=== PATIENT | female | born 1935 | race American Indian/Alaskan Native ===

== ENCOUNTER 2017-08-29 17:13 | Emergency (ER) | payer MEDICARE ==
[~2017-08-29] VITALS: Ht 157.5 cm; Wt 54.4 kg
[~2017-08-29 17:13] MED LIST: AMLO5 PO; ASPI325 PO; ASPI81CH PO; ASPI81EC PO; ATOR40TA PO; CARV6.25 PO; CLOP75 PO; DOCU100 PO; ERGO50000 PO; FISH1000 PO; GABA300 PO; GABA800 PO; LISI20 PO; LISI5 PO; OXYACE5T PO; PRAV20; PRAV20 PO; ROSU10TA PO; UBID10 PO
[2017-08-29] MEDS ORDERED: AMLO5 (17:47)
[2017-08-29 18:22] LABS: Source, Urine Clean Catch
[2017-08-29 18:27] LABS: Appearance, Urine Cloudy (Clear); Blood, Urine 3+ (Neg); Color, Urine Yellow (P-Yellow); Glucose Qualitative, Urine Neg (Neg); Ketones, Urine 1+ (Neg); Leukocyte Esterase, Urine 3+ (Neg); Nitrite, Urine Neg (Neg); Protein, Urine 2+ (Neg); Urobilinogen, Urine 2+ (Normal)
[2017-08-29 18:29] LABS: BASOPHILS ABSOLUTE AUTO 0.03 K/mm3 (0.00-0.23); BASOPHILS PERCENT AUTO 0 % (0-2); EOSINOPHILS ABSOLUTE AUTO 0.31 K/mm3 (0.00-0.68); EOSINOPHILS PERCENT AUTO 4 % (0-6); Hematocrit 38.8 % (33.0-51.0); IMMATURE GRAN ABSOLUTE AUTO 0.02 K/mm3 (0.00-0.10); IMMATURE GRAN PERCENT AUTO 0 % (0-1); LYMPHOCYTES ABSOLUTE AUTO 2.45 K/mm3 (0.84-5.20); LYMPHOCYTES PERCENT AUTO 28 % (21-46); MONOCYTES ABSOLUTE AUTO 1.26 K/mm3 (0.16-1.47); MONOCYTES PERCENT AUTO 14 % (4-13); Mean Corpuscular HGB 30.7 pg (26.0-34.0); Mean Corpuscular HGB Conc 33.5 g/dL (31.5-36.5); Mean Corpuscular Volume 92 fL (80-100); Mean Platelet Volume 9.9 fL (9.1-12.4); NEUTROPHILS ABSOLUTE AUTO 4.71 K/mm3 (1.96-9.15); NEUTROPHILS PERCENT AUTO 54 % (41-73); Platelet Count 143 K/mm3 (150-400); RDW Coefficient Variation 12.8 % (11.7-14.2); RDW Standard Deviation 42.4 fL (35.1-46.3); Red Blood Cell Count 4.24 M/mm3 (3.80-5.20); White Blood Cell Count 8.78 K/mm3 (4.00-11.30)
[2017-08-29 18:36] LABS: Albumin, Blood 3.6 g/dL (3.4-5.0); Albumin/Globulin Ratio 0.9 (0.8-1.8); Bilirubin, Total 0.7 mg/dL (0.1-1.0); Bun/Creatinine Ratio 14.5 (12.0-20.0); Calcium, Blood 8.6 mg/dL (8.5-10.1); Creatinine, Blood 1.79 mg/dL (0.40-1.00); Globulin, Blood 4.2 g/dL (2.2-4.0); Total Protein, Blood 7.8 g/dL (6.4-8.2)
[2017-08-29 19:01] LABS: Bilirubin, Urine 1+ (Neg)
[2017-08-29 19:02] LABS: Bacteria Many /hpf; Squamous Epithelial Cells Few /hpf (Few); White Blood Cells, Urine 50-100 /hpf (0-5)
[2017-08-29 19:23] LABS: Influenza A Negative (NEGATIVE); Influenza B Negative (NEGATIVE)
[2017-08-29] MEDS ORDERED: CEPH500 PO (20:07)
== END 2017-08-29 20:20 | disposition left against medical advice (07) ==
LOC: ER 17:13
PROVIDERS: Emergency Medicine; Physician Assistant
DX: N39.0 Urinary tract infection, site not specified (principal); N17.9 Acute kidney failure, unspecified; I10 Essential (primary) hypertension; E78.00 Pure hypercholesterolemia, unspecified; Z79.899 Other long term (current) drug therapy; Z79.82 Long term (current) use of aspirin; Z87.891 Personal history of nicotine dependence
CPT/HCPCS: 36415; 71046; 80053; 81001; 83605; 85025; 87040; 87077; 87086; 87186; 87804; 93005; 93010; 96361; 96374; 99283; J0696; J7030

== ENCOUNTER → 2017-09-17 | Outpatient (CLI) | payer MEDICARE ==
[~2017-09-17] MED LIST changes: +AMLO5; +CEPH500 PO
== END ==
LOC: LAB EV 18:24 → LAB SHORT 18:24
DX: N39.0 Urinary tract infection, site not specified (principal)
CPT/HCPCS: 87086

== ENCOUNTER → 2020-08-19 | Outpatient (CLI) | payer MEDICARE ==
[~2020-08-19] MED LIST changes: +CODACE30 PO; +LIDO700A20 TOP; +Norco 5-325 Ta1 EACH PO; +PRAM.125 PO; +PRAVASTATIN SOD40 MG PO; +SENN187 PO
== END | disposition home or self-care (01) ==
LOC: LAB SHORT 17:46 → LAB 17:46
DX: N39.0 Urinary tract infection, site not specified (principal)
CPT/HCPCS: 87077; 87086; 87186

== ENCOUNTER 2020-09-18 19:37 | Observation (INO) | payer MEDICARE ==
[~2020-09-18] VITALS: Ht 160 cm; Wt 51.3 kg
[~2020-09-18 19:37] MED LIST changes: -CODACE30 PO; -LIDO700A20 TOP; -Norco 5-325 Ta1 EACH PO; -PRAM.125 PO; -PRAVASTATIN SOD40 MG PO; -SENN187 PO
[2020-09-18 20:11] LABS: BASOPHILS ABSOLUTE AUTO 0.03 K/mm3 (0.00-0.23); BASOPHILS PERCENT AUTO 0 % (0-2); EOSINOPHILS ABSOLUTE AUTO 0.26 K/mm3 (0.00-0.68); EOSINOPHILS PERCENT AUTO 4 % (0-6); Hematocrit 28.7 % (33.0-51.0); Hemoglobin 9.2 g/dL (11.5-16.0); IMMATURE GRAN ABSOLUTE AUTO 0.02 K/mm3 (0.00-0.10); IMMATURE GRAN PERCENT AUTO 0 % (0-1); LYMPHOCYTES ABSOLUTE AUTO 1.34 K/mm3 (0.84-5.20); LYMPHOCYTES PERCENT AUTO 19 % (21-46); MONOCYTES ABSOLUTE AUTO 0.86 K/mm3 (0.16-1.47); MONOCYTES PERCENT AUTO 12 % (4-13); Mean Corpuscular HGB 29.6 pg (26.0-34.0); Mean Corpuscular HGB Conc 32.1 g/dL (31.5-36.5); Mean Corpuscular Volume 92 fL (80-100); Mean Platelet Volume 9.7 fL (9.1-12.4); NEUTROPHILS ABSOLUTE AUTO 4.57 K/mm3 (1.96-9.15); NEUTROPHILS PERCENT AUTO 65 % (41-73); Platelet Count 161 K/mm3 (150-400); RDW Coefficient Variation 14.2 % (11.7-14.2); Red Blood Cell Count 3.11 M/mm3 (3.80-5.20); White Blood Cell Count 7.08 K/mm3 (4.00-11.30)
[2020-09-18 20:26] LABS: International Normalized Ratio 1.05; Prothrombin Time Results 11.2 Sec (9.7-11.5)
[2020-09-18 20:58] LABS: Albumin, Blood 3.6 g/dL (3.4-5.0); Albumin/Globulin Ratio 0.9 (0.8-1.8); Bilirubin, Total 0.5 mg/dL (0.1-1.0); Bun/Creatinine Ratio 17.7 (12.0-20.0); Calcium, Blood 5.3 mg/dL (8.5-10.1); Creatinine, Blood 1.24 mg/dL (0.40-1.00); Globulin, Blood 3.9 g/dL (2.2-4.0); Potassium, Blood 6.2 mmol/L (3.5-5.5); Total Protein, Blood 7.5 g/dL (6.4-8.2)
[2020-09-18 23:30] LABS: Chloride (POC) 103 mmol/L (98-108); Creatinine (POC) 1.1 mg/dL (0.6-1.0); Glucose (ISTAT POC) 108 mg/dL (70-99); Hemoglobin (POC) 9.5 g/dL (12.0-16.0); Potassium (POC) 4.4 mmol/L (3.5-5.5); Sodium (POC) 139 mmol/L (135-148); Total CO2 (POC) 26 mmol/L (21-32)
[2020-09-19 03:29] LABS: Influenza A, PCR NEGATIVE (NEGATIVE); Influenza B, PCR NEGATIVE (NEGATIVE); Resp Syncytial Virus, PCR NEGATIVE (NEGATIVE); SARS-Cov-2 (COVID-19) PCR, MMC NEGATIVE (NEGATIVE)
[2020-09-19] MEDS ORDERED: PRAVASTATIN SOD40 MG PO (05:08)
[2020-09-19] MEDS ORDERED: PRAM.125 PO (05:11)
[2020-09-19 05:26] LABS: BASOPHILS ABSOLUTE AUTO 0.03 K/mm3 (0.00-0.23); BASOPHILS PERCENT AUTO 0 % (0-2); EOSINOPHILS ABSOLUTE AUTO 0.21 K/mm3 (0.00-0.68); EOSINOPHILS PERCENT AUTO 3 % (0-6); Hematocrit 27.7 % (33.0-51.0); Hemoglobin 8.7 g/dL (11.5-16.0); IMMATURE GRAN ABSOLUTE AUTO 0.02 K/mm3 (0.00-0.10); IMMATURE GRAN PERCENT AUTO 0 % (0-1); LYMPHOCYTES ABSOLUTE AUTO 1.43 K/mm3 (0.84-5.20); LYMPHOCYTES PERCENT AUTO 20 % (21-46); MONOCYTES ABSOLUTE AUTO 0.77 K/mm3 (0.16-1.47); MONOCYTES PERCENT AUTO 11 % (4-13); Mean Corpuscular HGB 29.2 pg (26.0-34.0); Mean Corpuscular HGB Conc 31.4 g/dL (31.5-36.5); Mean Corpuscular Volume 93 fL (80-100); Mean Platelet Volume 9.2 fL (9.1-12.4); NEUTROPHILS ABSOLUTE AUTO 4.72 K/mm3 (1.96-9.15); NEUTROPHILS PERCENT AUTO 66 % (41-73); Platelet Count 147 K/mm3 (150-400); RDW Coefficient Variation 13.8 % (11.7-14.2); Red Blood Cell Count 2.98 M/mm3 (3.80-5.20); White Blood Cell Count 7.18 K/mm3 (4.00-11.30)
[2020-09-19 05:57] LABS: Albumin, Blood 3.2 g/dL (3.4-5.0); Albumin/Globulin Ratio 0.9 (0.8-1.8); Bilirubin, Total 0.6 mg/dL (0.1-1.0); Bun/Creatinine Ratio 17.4 (12.0-20.0); Creatinine, Blood 1.09 mg/dL (0.40-1.00); Globulin, Blood 3.6 g/dL (2.2-4.0); Total Protein, Blood 6.8 g/dL (6.4-8.2)
[2020-09-19 06:01] LABS: Calcium, Blood 8.4 mg/dL (8.5-10.1); Potassium, Blood 4.2 mmol/L (3.5-5.5)
[2020-09-19 06:49] LABS: CPK Creatine Kinase 150 U/L (26-193)
--- NOTE | 2020-09-19 09:25 | NUR ---
ECHOCARDIOGRAM COMPLETE
[2020-09-19 09:44] LABS: Source, Urine Clean Catch
[2020-09-19 09:51] LABS: Bilirubin, Urine Neg (Neg); Blood, Urine Neg (Neg); Glucose Qualitative, Urine Neg (Neg); Ketones, Urine Neg (Neg); Leukocyte Esterase, Urine Neg (Neg); Nitrite, Urine Neg (Neg); Protein, Urine Neg (Neg); Specific Gravity, Urine 1.005 (1.003-1.022); Urobilinogen, Urine NORM (Normal)
[2020-09-19 09:52] LABS: Appearance, Urine Clear (Clear); Color, Urine Yellow (P-Yellow)
[2020-09-19 12:32] LABS: CPK Creatine Kinase 171 U/L (26-193); Troponin I <0.015 ng/mL (0.000-0.040)
--- NOTE | 2020-09-19 12:43 | NUR ---
TITRATED TO ROOM AIR. PT TITRATED TO ROOM AIR AFTER TRIALING 1L O2. PT SATING AT 94% AFTER TOILETING AND GETTING UP TO CHAIR ON RA.
--- NOTE | 2020-09-19 17:48 | NUR ---
SHIFT SUMMARY PT RESPONDING WELL THE LASIX GIVEN THIS AM & THIS AFTERNOON. TYLENOL #3, WHICH IS A HOME MED, ADDED TO PAIN REGIMEN & HAS HELPED WITH PTS PAIN. PT STATES THAT THE OXYCODONE & IV FENTANYL DIDNT HELP PREVIOUSLY. UA COLLECTED & IS CLEAN. PT TITRATED OFF OF O2 AND IS SATING AT 93-94% ON RA. PT AMBULATED TO BATHROOMWITH FWW & 1P ASSIST TODAY & TOLERATED WELL. PTS DAUGHTER STATES THAT HER MOTHER IS STILL WEAKER THAN NORMAL, HOWEVER. NO OTHER ACUTE CHANGES IN ASSESSMENT AT THIS TIME. VS REVIEWED. PT SITTING UPRIGHT IN BED. CALL LIGHT IN REACH. BED ALARM IN PLACE.
[2020-09-19] MEDS ORDERED: CODACE30 PO (17:56)
[2020-09-20 05:25] LABS: Bun/Creatinine Ratio 16.6 (12.0-20.0); Calcium, Blood 8.3 mg/dL (8.5-10.1); Creatinine, Blood 1.45 mg/dL (0.40-1.00); Potassium, Blood 3.9 mmol/L (3.5-5.5)
--- NOTE | 2020-09-20 06:11 | NUR ---
SHIFT SUMMARY A/O, ABLE TO MAKE NEEDS KNOWN. COOPERATIVE WITH CARE. ANSWERS QUESTIONS APPROPRIATELY. NO C/O PAIN/DISCOMFORT; HOWEVER, DOES HAVE FENTANYL PATCH TO LCW. APPEARS TO BE MANAGING PAIN VERY WELL. APPEARED TO REST MUCH OF THE NIGHT. 1P TO BSC OR 1P /c FWW AND GB TO BR. SHUFFLED GAIT NOTED R/T L SIDED WEAKNESS WHICH RESULTED FROM PREVIOUS CVA. TELE RUNNING SR IN 60s. NO ACUTE CHANGES NOTED OVERNIGHT. BED REMAINED IN LOWEST POSITION; ALARM ON. CALL LIGHT AND BELONGINGS WITHIN REACH. CONTINUE WITH CURRENT PLAN OF CARE. REPORT TO ONCOMING RN.
[2020-09-20] MEDS ORDERED: SENN187 PO (15:28)
[2020-09-20] MEDS ORDERED: DOCU100 PO (15:29)
[2020-09-20] MEDS ORDERED: LIDO700A20 TOP (15:33)
[2020-09-20] MEDS ORDERED: Norco 5-325 Ta1 EACH PO (15:33)
--- NOTE | 2020-09-20 16:08 | NUR ---
SHIFT SUMMARY PT AWAKE THIS AM, DURING SHIFT REPORT. NO C/O. UP TO BTHRM WITH 1P ASSIST USING FWW. DR ROBERTS IN EARLY THIS AM TO SEE PT. DISCUSSED PLAN OF CARE. NO C/O SOB. BACK PAIN TOLERABLE. LIDOCAINE PATCH ORDERED AND PLACED. PT/OT EVAL DONE. PT ABLE TO AMBULATE IN HALLS AND AROUND RM USING FWW AND SBA. PT TO GO HOME WITH H/H. PT'S DAUGHTERS BOTH ASSISTING PT NEEDED. DAUGHTER HERE TO PICK PT UP. TELE AND IV D/C'D. D/C ORDERS DISCUSSED WITH PT AND DAUGHTER. HARD SCRIPT SENT WITH PT FOR [employer]. BOWEL CARE ALSO ORDERED FOR HOME USE. PT AND DAUGHTER VERBALIZED UNDERSTANDING. PT ASSISTED OUT VIA W/C BY MITCHELL.
== END 2020-09-20 16:05 | disposition home health service (06) ==
LOC: ER 19:37 → MEDS 19:38 → ER 09-19 03:27 → MEDS 09-19 03:27 → ENPENDDIS 09-20 15:10 → MEDS 09-20 16:05
PROVIDERS: Emergency Medicine; Internal Medicine; Physician Assistant; ADMIT Internal Medicine
DX: J96.01 Acute respiratory failure with hypoxia (principal); I16.0 Hypertensive urgency; I11.0 Hypertensive heart disease with heart failure; I50.31 Acute diastolic (congestive) heart failure; E87.5 Hyperkalemia; I71.4 Abdominal aortic aneurysm, without rupture; R10.9 Unspecified abdominal pain; I73.9 Peripheral vascular disease, unspecified; I25.10 Atherosclerotic heart disease of native coronary artery without angina pectoris; E78.5 Hyperlipidemia, unspecified; N28.0 Ischemia and infarction of kidney; K80.20 Calculus of gallbladder without cholecystitis without obstruction; M85.80 Other specified disorders of bone density and structure, unspecified site; J44.9 Chronic obstructive pulmonary disease, unspecified; K59.00 Constipation, unspecified; M48.54XA Collapsed vertebra, not elsewhere classified, thoracic region, initial encounter for fracture; R53.1 Weakness; I27.20 Pulmonary hypertension, unspecified; I77.89 Other specified disorders of arteries and arterioles; Z20.822 Contact with and (suspected) exposure to COVID-19; Z86.73 Personal history of transient ischemic attack (TIA), and cerebral infarction without residual deficits; Z87.891 Personal history of nicotine dependence; Z95.5 Presence of coronary angioplasty implant and graft; Z79.02 Long term (current) use of antithrombotics/antiplatelets; Z79.82 Long term (current) use of aspirin
CPT/HCPCS: 0241U; 36415; 71045; 72100; 74174; 80047; 80048; 80053; 81003; 82550; 83880; 84484; 85014; 85025; 85610; 85730; 86850; 86900; 86901; 93005; 93010; 93306; 94640; 96361; 96365; 97116; 97162; 97165; 97535; 99285-25; A9270; G0378; J0610; J1650; J1815; J1940; J3010; J7030; Q9967

== ENCOUNTER 2021-05-17 10:31 | Inpatient (IN) | payer MEDICARE ==
[~2021-05-17] VITALS: Ht 162.6 cm; Wt 48.1 kg
[~2021-05-17 10:31] MED LIST changes: +CODACE30 PO; +LIDO700A20 TOP; +Norco 5-325 Ta1 EACH PO; +PRAM.125 PO; +PRAVASTATIN SOD40 MG PO; +SENN187 PO
[2021-05-17 11:57] LABS: BASOPHILS ABSOLUTE AUTO 0.01 K/mm3 (0.00-0.23); BASOPHILS PERCENT AUTO 0 % (0-2); EOSINOPHILS ABSOLUTE AUTO 0.03 K/mm3 (0.00-0.68); EOSINOPHILS PERCENT AUTO 0 % (0-6); IMMATURE GRAN ABSOLUTE AUTO 0.04 K/mm3 (0.00-0.10); IMMATURE GRAN PERCENT AUTO 1 % (0-1); LYMPHOCYTES ABSOLUTE AUTO 1.73 K/mm3 (0.84-5.20); LYMPHOCYTES PERCENT AUTO 20 % (21-46); MONOCYTES ABSOLUTE AUTO 0.99 K/mm3 (0.16-1.47); MONOCYTES PERCENT AUTO 11 % (4-13); Mean Corpuscular HGB 27.3 pg (26.0-34.0); Mean Corpuscular HGB Conc 29.3 g/dL (31.5-36.5); Mean Corpuscular Volume 93 fL (80-100); Mean Platelet Volume 10.4 fL (9.1-12.4); NEUTROPHILS ABSOLUTE AUTO 5.85 K/mm3 (1.96-9.15); NEUTROPHILS PERCENT AUTO 68 % (41-73); Platelet Count 143 K/mm3 (150-400); RDW Standard Deviation 47.5 fL (35.1-46.3); White Blood Cell Count 8.65 K/mm3 (4.00-11.30)
[2021-05-17 12:10] LABS: Hemoglobin 4.1 g/dL (11.5-16.0)
[2021-05-17 12:12] LABS: Albumin, Blood 2.9 g/dL (3.4-5.0); Bilirubin, Total 0.4 mg/dL (0.1-1.0); Creatinine, Blood 1.89 mg/dL (0.40-1.00); Total Protein, Blood 5.9 g/dL (6.4-8.2)
[2021-05-17] MEDS ORDERED: MAGNESIUM GLUCO27 M1 PO (12:37)
[2021-05-17] MEDS ORDERED: Coq-1030 MG PO (12:38)
[2021-05-17] MEDS ORDERED: CENTRUM SILVER1 EAC2 PO (12:38)
[2021-05-17 12:57] LABS: Creatine Kinase MB 9.8 ng/mL (0.0-3.6); Creatine Kinase MB Index 4.4 (0.0-4.0)
[2021-05-17 13:24] LABS: International Normalized Ratio 1.25; Prothrombin Time Results 12.9 Sec (9.7-11.5)
[2021-05-17 15:01] LABS: Influenza A, PCR NEGATIVE (NEGATIVE); Influenza B, PCR NEGATIVE (NEGATIVE); Resp Syncytial Virus, PCR NEGATIVE (NEGATIVE); SARS-Cov-2 (COVID-19) PCR, MMC NEGATIVE (NEGATIVE)
[2021-05-17 16:08] LABS: Source, Urine Clean Catch
[2021-05-17 16:12] LABS: Appearance, Urine Clear (Clear); Bilirubin, Urine Neg (Neg); Blood, Urine 3+ (Neg); Glucose Qualitative, Urine Neg (Neg); Ketones, Urine 1+ (Neg); Leukocyte Esterase, Urine 2+ (Neg); Nitrite, Urine Neg (Neg); Protein, Urine 1+ (Neg); Specific Gravity, Urine 1.015 (1.003-1.022); Urobilinogen, Urine NORM (Normal)
[2021-05-17 16:45] LABS: Color, Urine Pale Yellow (P-Yellow)
[2021-05-17 16:47] LABS: White Blood Cells, Urine 0-2 /hpf (0-5)
[2021-05-17 16:48] LABS: Bacteria Mod /hpf; Squamous Epithelial Cells Few /hpf (Few)
--- NOTE | 2021-05-17 18:28 | NUR ---
05/17/[id number] Ila Solano DISCUSSED WITH DR. MICHELLE NIÑOITICAL HIGH TROPONIN AND LACTIC ACID. MDE REPORTS HE IS AWARE AND MFEELS THAT THE VALUERS ARE RELATED TO PATIENT HAVING GI BLEED, THUS NEED TO PROCEDURE TO FIX. REP[OORTS OKAY FOR NURSE ADMINISTERED PROPOFOL SEDATATION DESPITE THIS.
--- NOTE | 2021-05-17 18:47 | NUR ---
Echocardiogram completed.
[2021-05-17 20:10] LABS: Hemoglobin 7.3 g/dL (11.5-16.0)
[2021-05-18 00:11] LABS: Hematocrit 18.9 % (33.0-51.0); Hemoglobin 6.4 g/dL (11.5-16.0)
--- NOTE | 2021-05-18 05:45 | NUR ---
SHIFT SUMMARY PT IS ALERT AND ORIENTED. VITALS HAVE BEEN STABLE AND IS ON ROOM AIR. SHE HAS NOT HAD ANY ACUTE CHANGES SINCE ADMITTED TO FLOOR. PT DENIES CHEST PAIN OR SOB. PT REPORTED PAIN OF 9/10 IN LOWER BACK AND WAS MEDICATED PER EMAR. PT'S HGB WAS AT 6.4 AND WAS TRANSFUSED 1 UNIT OF RBC AND TOLERATED VERY WELL. SHE IS USING THE BEDPAN AT THIS TIME. PT STATES THAT THE PAST WEEK SHE HAS BEEN UNABLE TO WALK DUE TO WEAKNESS AND HAS USED A WALKER OR WHEELCHAIR AT HOME. PT LIVES BY HERSELF IN [facility]. CALL LIGHT IS WITHIN REACH.
[2021-05-18 06:15] LABS: BASOPHILS ABSOLUTE AUTO 0.03 K/mm3 (0.00-0.23); BASOPHILS PERCENT AUTO 0 % (0-2); EOSINOPHILS ABSOLUTE AUTO 0.14 K/mm3 (0.00-0.68); EOSINOPHILS PERCENT AUTO 2 % (0-6); Hematocrit 22.9 % (33.0-51.0); Hemoglobin 7.6 g/dL (11.5-16.0); IMMATURE GRAN ABSOLUTE AUTO 0.03 K/mm3 (0.00-0.10); IMMATURE GRAN PERCENT AUTO 0 % (0-1); LYMPHOCYTES ABSOLUTE AUTO 1.53 K/mm3 (0.84-5.20); LYMPHOCYTES PERCENT AUTO 17 % (21-46); MONOCYTES ABSOLUTE AUTO 1.03 K/mm3 (0.16-1.47); MONOCYTES PERCENT AUTO 12 % (4-13); Mean Corpuscular HGB 28.6 pg (26.0-34.0); Mean Corpuscular HGB Conc 33.2 g/dL (31.5-36.5); Mean Platelet Volume 10.2 fL (9.1-12.4); NEUTROPHILS ABSOLUTE AUTO 6.17 K/mm3 (1.96-9.15); NEUTROPHILS PERCENT AUTO 69 % (41-73); Platelet Count 106 K/mm3 (150-400); RDW Standard Deviation 46.6 fL (35.1-46.3); Red Blood Cell Count 2.66 M/mm3 (3.80-5.20); White Blood Cell Count 8.93 K/mm3 (4.00-11.30)
[2021-05-18 06:18] LABS: Mean Corpuscular Volume 86 fL (80-100)
[2021-05-18 06:37] LABS: Albumin, Blood 2.5 g/dL (3.4-5.0); Albumin/Globulin Ratio 0.9 (0.8-1.8); Bilirubin, Total 1.1 mg/dL (0.1-1.0); Bun/Creatinine Ratio 36.6 (12.0-20.0); Calcium, Blood 8.1 mg/dL (8.5-10.1); Creatinine, Blood 1.75 mg/dL (0.40-1.00); Globulin, Blood 2.8 g/dL (2.2-4.0); Potassium, Blood 3.9 mmol/L (3.5-5.5); Total Protein, Blood 5.3 g/dL (6.4-8.2)
--- NOTE | 2021-05-18 09:11 | NUR ---
CARE ASSUMPTION THIS RN ASSUMED CARE FROM OUMAR RN AT 0700. PATIENT IS A/OX4. VSS. PATIENT REPORTS NO CHEST PAIN, PAIN, OR SOB. MD SHAFFER IN THIS AM AND IS GOING TO CONSULT WITH IR. BED IN LOWEST POSITION AND CALL LIGHT WITHIN REACH. WILL CONTINUE TO MONITOR AND PROVIDE CARE.
--- NOTE | 2021-05-18 17:11 | NUR ---
SHIFT SUMMARY PATIENT IS A/OX4. VSS. TELE SR. PATIENT REPORTS NO CHEST PAIN, PAIN, OR SOB. PATIENT LEFT PEDIS AND TIBIAL PULSE UNABLE TO FIND VIA DOPPLER, AND CAP REFILL IS >3SECONDS. MD SHAFFER AWARE. PATIENT IS MED STATUS WITH TELE. OTHER THAN THAT NO ACUTE CHANGES THIS SHIFT. CALL LIGHT WITHIN REACH AND BED IN LOWEST POSITION. WILL CONTINUE TO MONITOR AND PROVIDE CARE UNTIL HAND OFF WITH NEXT SHIFT.
--- NOTE | 2021-05-18 18:18 | NUR ---
TRANSFER TO [facility] THIS RN GAVE REPORT TO MED RN. THIS RN GATHERED PATIENT BELONGINGS AND TRANSFERED PATIENT TO [facility] FLOOR.
--- NOTE | 2021-05-19 04:47 | NUR ---
SHIFT SUMMARY PT PLEASANT AND COOPERATIVE. COMPLAINED OF PAIN TO LEFT LEG, BACK, AND GROIN. PT REPORTS PAIN HAS BEEN PRESENT FOR SOME TIME BEFORE ADMISSION. MEDICATED X 1 W/ 2.5 MG IV MORPHINE WITH GOOD EFFECT. PT HAD ONE SMALL BOWEL MOVEMENT. DARK IN COLOR. STOOL WAS CONTAMINATED WITH URINE SO COULD NOT BE SENT TO LAB FOR ORDERED SAMPLE. TELEMETRY SINUS RHYTHM WITH INVERTED T WAVES AT 85. VITAL SIGNS STABLE. WILL CONTINUE TO MONITOR.
[2021-05-19 06:50] LABS: BASOPHILS ABSOLUTE AUTO 0.02 K/mm3 (0.00-0.23); BASOPHILS PERCENT AUTO 0 % (0-2); EOSINOPHILS ABSOLUTE AUTO 0.35 K/mm3 (0.00-0.68); EOSINOPHILS PERCENT AUTO 4 % (0-6); Hematocrit 21.2 % (33.0-51.0); Hemoglobin 6.8 g/dL (11.5-16.0); IMMATURE GRAN ABSOLUTE AUTO 0.03 K/mm3 (0.00-0.10); IMMATURE GRAN PERCENT AUTO 0 % (0-1); LYMPHOCYTES ABSOLUTE AUTO 1.57 K/mm3 (0.84-5.20); LYMPHOCYTES PERCENT AUTO 20 % (21-46); MONOCYTES ABSOLUTE AUTO 1.01 K/mm3 (0.16-1.47); MONOCYTES PERCENT AUTO 13 % (4-13); Mean Corpuscular HGB 27.9 pg (26.0-34.0); Mean Corpuscular HGB Conc 32.1 g/dL (31.5-36.5); Mean Corpuscular Volume 87 fL (80-100); Mean Platelet Volume 10.2 fL (9.1-12.4); NEUTROPHILS ABSOLUTE AUTO 5.05 K/mm3 (1.96-9.15); NEUTROPHILS PERCENT AUTO 63 % (41-73); Platelet Count 96 K/mm3 (150-400); RDW Standard Deviation 47.5 fL (35.1-46.3); Red Blood Cell Count 2.44 M/mm3 (3.80-5.20); White Blood Cell Count 8.03 K/mm3 (4.00-11.30)
[2021-05-19 09:44] LABS: Albumin, Blood 2.6 g/dL (3.4-5.0); Anion Gap 6 mmol/L (6-16); Blood Urea Nitrogen 67 mg/dL (8-24); Bun/Creatinine Ratio 38.5 (12.0-20.0); CO2, Blood 25 mmol/L (21-32); Chloride, Blood 112 mmol/L (98-108); Creatinine, Blood 1.74 mg/dL (0.40-1.00); Glomerular Filtration Rate 28 (60-); Glucose, Blood 100 mg/dL (70-99); Phosphorus, Blood 3.6 mg/dL (2.5-4.9); Potassium, Blood 4.2 mmol/L (3.5-5.5); Sodium, Blood 143 mmol/L (136-145)
[2021-05-19 18:25] LABS: Hematocrit 27.6 % (33.0-51.0); Hemoglobin 9.1 g/dL (11.5-16.0)
--- NOTE | 2021-05-19 18:49 | NUR ---
Alert and oriented x3 , able to make needs known. Denies any pain. worked with PT/OT for strength and endurance , it was tolerated. BP mildly elevated , will continue to monitor. 1 unit RBC was given and H/H trended up to 9.1/27.6 , no transfusion reaction noted. Continue to monitor.
[2021-05-20 04:48] LABS: Hematocrit 24.5 % (33.0-51.0)
[2021-05-20 05:54] LABS: Bun/Creatinine Ratio 35.5 (12.0-20.0); Calcium, Blood 7.6 mg/dL (8.5-10.1); Creatinine, Blood 1.55 mg/dL (0.40-1.00); Potassium, Blood 4.6 mmol/L (3.5-5.5)
--- NOTE | 2021-05-20 07:26 | NUR ---
CONFIGURATION ANALYST SUMMARY PATIENT HAD A PANIC ATTACK, HR IN THE 150s-170s VITAL SIGNS WERE CHECKED AND RECORDED DR. HURT WAS WAS INFORMED AND ORDERS GOTTEN SEE ORDERS/EMAR. WILL CONTINUE TO MONITOR PATIENT.
[2021-05-20 12:39] LABS: Hematocrit 28.3 % (33.0-51.0)
[2021-05-20] MEDS ORDERED: PANT40 PO (15:16)
--- NOTE | 2021-05-20 18:05 | NUR ---
Alert and oriented x3 , able to make needs known. Denies any pain. One person assist with ADLS. Ambulate to bathroom using a walker on steady gait.Vital signs are stable. Denies any shortness of breath, dizziness , headache or chest pain. Continue on plavix , no adverse effect noted. Patient discharged home in a stable condition and discharged instruction acknowleged.
== END 2021-05-20 16:43 | disposition home or self-care (01) | DRG 378 ==
LOC: ER 10:31 → MEDS 16:11 → PCU 16:11 → ER 18:14 → PCU 19:17 → MEDS 05-18 18:03
PROVIDERS: Family Medicine; Internal Medicine Gastroenterology; Physician Assistant; Student in an Organized Health Care Education/Training Program; ADMIT Hospitalist
PROC: 0DJ08ZZ Inspection of Upper Intestinal Tract, Via Natural or Artificial Opening Endoscopic (ICD-10-PCS; 2021-05-17)
PROC: 30233N1 Transfusion of Nonautologous Red Blood Cells into Peripheral Vein, Percutaneous Approach (ICD-10-PCS; principal; 2021-05-17 18:30)
DX: K25.4 Chronic or unspecified gastric ulcer with hemorrhage (principal); Z68.1 Body mass index [BMI] 19.9 or less, adult; E87.2 Acidosis; N17.9 Acute kidney failure, unspecified; M62.82 Rhabdomyolysis; I77.4 Celiac artery compression syndrome; K55.1 Chronic vascular disorders of intestine; I24.8 Other forms of acute ischemic heart disease; Z66 Do not resuscitate; Z20.822 Contact with and (suspected) exposure to COVID-19; I25.10 Atherosclerotic heart disease of native coronary artery without angina pectoris; M19.90 Unspecified osteoarthritis, unspecified site; E78.5 Hyperlipidemia, unspecified; Z96.642 Presence of left artificial hip joint; R63.4 Abnormal weight loss; I70.1 Atherosclerosis of renal artery; I73.9 Peripheral vascular disease, unspecified; I77.9 Disorder of arteries and arterioles, unspecified; I48.0 Paroxysmal atrial fibrillation; I12.9 Hypertensive chronic kidney disease with stage 1 through stage 4 chronic kidney disease, or unspecified chronic kidney disease; N18.9 Chronic kidney disease, unspecified; E86.0 Dehydration; I08.1 Rheumatic disorders of both mitral and tricuspid valves; I27.20 Pulmonary hypertension, unspecified; E86.9 Volume depletion, unspecified; G25.81 Restless legs syndrome; Z86.73 Personal history of transient ischemic attack (TIA), and cerebral infarction without residual deficits; Z95.5 Presence of coronary angioplasty implant and graft; Z98.890 Other specified postprocedural states; Z87.891 Personal history of nicotine dependence; Z79.02 Long term (current) use of antithrombotics/antiplatelets; Z79.82 Long term (current) use of aspirin; Z79.899 Other long term (current) drug therapy
CPT/HCPCS: 0241U; 36415; 36430; 71045; 75635; 76775; 80048; 80053; 80069; 81001; 82550; 82553; 83605; 84484; 85014; 85018; 85025; 85610; 85730; 86850; 86900; 86901; 86923; 87086; 87338; 93005; 93010; 93306; 93925; 96374; 96375; 96376; 97110; 97116; 97162; 97166; 97530; 97535; 99285-25; A9270; C1751; C9113; J1940; J2270; J2704; J3010; J7040; J7120; P9016; Q9967

== ENCOUNTER 2021-06-03 04:09 | Day surgery (SDC) | payer MEDICARE ==
[~2021-06-03 04:09] MED LIST changes: +CENTRUM SILVER1 EAC2 PO; +Coq-1030 MG PO; +MAGNESIUM GLUCO27 M1 PO; +PANT40 PO
--- NOTE | 2021-06-03 18:01 | NUR ---
PT WITH PERRY IN LLL. ENCOURAGED PT TO GO TO ER IF SHE HAS INCREASED SOB.
== END 2021-06-03 17:54 | disposition home or self-care (01) ==
LOC: ATC 04:09
DX: I12.9 Hypertensive chronic kidney disease with stage 1 through stage 4 chronic kidney disease, or unspecified chronic kidney disease (principal); N18.4 Chronic kidney disease, stage 4 (severe); D63.1 Anemia in chronic kidney disease; I25.2 Old myocardial infarction; I69.998 Other sequelae following unspecified cerebrovascular disease; Z79.899 Other long term (current) drug therapy
CPT/HCPCS: 36415; 36430; 86850; 86900; 86901; 86923; A9270; J7050; P9016

== ENCOUNTER 2021-07-25 13:50 | Inpatient (IN) | payer MEDICARE ==
[~2021-07-25] VITALS: Ht 162.6 cm; Wt 52.2 kg
[~2021-07-25 13:50] MED LIST changes: +FISH OIL 1,2001 EAC1 PO; -FISH1000 PO; +PANT20 PO; -PANT40 PO
[2021-07-25 15:00] LABS: BASOPHILS ABSOLUTE AUTO 0.03 K/mm3 (0.00-0.23); BASOPHILS PERCENT AUTO 1 % (0-2); EOSINOPHILS ABSOLUTE AUTO 0.21 K/mm3 (0.00-0.68); EOSINOPHILS PERCENT AUTO 3 % (0-6); Hematocrit 21.6 % (33.0-51.0); Hemoglobin 6.6 g/dL (11.5-16.0); IMMATURE GRAN ABSOLUTE AUTO 0.02 K/mm3 (0.00-0.10); IMMATURE GRAN PERCENT AUTO 0 % (0-1); LYMPHOCYTES ABSOLUTE AUTO 1.73 K/mm3 (0.84-5.20); LYMPHOCYTES PERCENT AUTO 27 % (21-46); MONOCYTES PERCENT AUTO 11 % (4-13); Mean Corpuscular HGB 27.6 pg (26.0-34.0); Mean Corpuscular HGB Conc 30.6 g/dL (31.5-36.5); Mean Corpuscular Volume 90 fL (80-100); Mean Platelet Volume 9.7 fL (9.1-12.4); NEUTROPHILS ABSOLUTE AUTO 3.64 K/mm3 (1.96-9.15); NEUTROPHILS PERCENT AUTO 58 % (41-73); Platelet Count 157 K/mm3 (150-400); RDW Standard Deviation 50.3 fL (35.1-46.3); Red Blood Cell Count 2.39 M/mm3 (3.80-5.20); White Blood Cell Count 6.33 K/mm3 (4.00-11.30)
[2021-07-25 15:21] LABS: Albumin, Blood 3.5 g/dL (3.4-5.0); Bilirubin, Total 0.3 mg/dL (0.1-1.0); Bun/Creatinine Ratio 41.4 (12.0-20.0); Calcium, Blood 8.6 mg/dL (8.5-10.1); Creatinine, Blood 1.16 mg/dL (0.40-1.00); Globulin, Blood 3.5 g/dL (2.2-4.0); Potassium, Blood 4.6 mmol/L (3.5-5.5)
[2021-07-25 15:44] LABS: International Normalized Ratio 1.03; Prothrombin Time Results 10.8 Sec (9.7-11.5)
[2021-07-25] MEDS ORDERED: CARVEDILOL3.125 MG PO (21:06)
[2021-07-25] MEDS ORDERED: CLOP75 PO (21:07)
[2021-07-25] MEDS ORDERED: ZESTRIL40 M1 PO (21:09)
[2021-07-25] MEDS ORDERED: PANT40 PO (21:10)
[2021-07-25] MEDS ORDERED: PRAMIPEXOLE D0.25 M1 PO (21:11)
[2021-07-25] MEDS ORDERED: HYDCHL25 PO (22:54)
[2021-07-25 23:46] LABS: Source, Urine Clean Catch
[2021-07-25 23:50] LABS: Bilirubin, Urine Neg (Neg); Blood, Urine Neg (Neg); Glucose Qualitative, Urine Neg (Neg); Ketones, Urine Neg (Neg); Leukocyte Esterase, Urine 1+ (Neg); Nitrite, Urine Neg (Neg); Protein, Urine Neg (Neg); Urobilinogen, Urine NORM (Normal); pH, Urine 6.5 (5.0-8.0)
[2021-07-26 00:09] LABS: Appearance, Urine Clear (Clear); Color, Urine Yellow (P-Yellow)
[2021-07-26 00:10] LABS: Bacteria Many /hpf; Red Blood Cells, Urine Not Seen /hpf (0-2); Squamous Epithelial Cells Rare /hpf (Few)
[2021-07-26 00:17] LABS: Hematocrit 23.6 % (33.0-51.0); Hemoglobin 7.6 g/dL (11.5-16.0)
--- NOTE | 2021-07-26 02:08 | NUR ---
URINE VERY ODOROUS. POSITIVE FOR UTI, CULTURES PENDING. WILL NOTIFY MD PENDING ORDERS
--- NOTE | 2021-07-26 03:40 | NUR ---
PATIENT ALERT AND ORIENTED TIMES 2-3, BUT FORGETFUL, AND NEEDS FREQUENT REMINDERS TO FOLLOW COMMANDS WHEN OOB WITH RN OR OTHER STAFF TO PREVENT INJURY.SHE IS VERY WEAK AND IS USED TO FUNCTIONING AT HOME INDEPENDENTLY WITH HER WALKER. HEMAGLOBIN AT 2400 WAS 7.6. NEXT DRAW 0600. PATIENT NPO SINCE 2400. REMOVED AND REFUSED SCD'S AFTER WEARING THEM AROUND 2 HOURS.
[2021-07-26 06:13] LABS: Hematocrit 21.4 % (33.0-51.0); Hemoglobin 6.8 g/dL (11.5-16.0)
[2021-07-26 06:49] LABS: Bun/Creatinine Ratio 38.7 (12.0-20.0); Calcium, Blood 8.3 mg/dL (8.5-10.1); Creatinine, Blood 1.19 mg/dL (0.40-1.00); Potassium, Blood 4.2 mmol/L (3.5-5.5)
[2021-07-26 10:05] LABS: Hematocrit 21.5 % (33.0-51.0)
[2021-07-26 11:06] LABS: Percent Saturation 28.8 % (15.0-50.0)
[2021-07-26 13:50] LABS: Influenza A, PCR NEGATIVE (NEGATIVE); Influenza B, PCR NEGATIVE (NEGATIVE); Resp Syncytial Virus, PCR NEGATIVE (NEGATIVE); SARS-Cov-2 (COVID-19) PCR, MMC NEGATIVE (NEGATIVE)
[2021-07-26 15:39] LABS: Hematocrit 24.2 % (33.0-51.0); Hemoglobin 7.8 g/dL (11.5-16.0)
--- NOTE | 2021-07-26 16:43 | NUR ---
SHIFT SUMMARY PT AA0X4. TOLERATED BLOOD TRANSFUSION WELL, REPORTS FEELING SLIGHTLY BETTER. PT MOVES AROUND IN BED WELL AND MAKES HER NEEDS KNOWN. IV PROTONIX INFUSING DURING SHIFT PER EMAR. PT C/O RESTLESS LEG PAIN X1. MEDICATED PER EMAR FOR RELIEF. WILL CONTINUE TO MONITOR HGB. NO REPORTS OF BLACK TARRY STOOLS DURING SHIFT.
[2021-07-26 21:43] LABS: Hematocrit 23.1 % (33.0-51.0); Hemoglobin 7.5 g/dL (11.5-16.0)
[2021-07-27 04:30] LABS: BASOPHILS ABSOLUTE AUTO 0.03 K/mm3 (0.00-0.23); BASOPHILS PERCENT AUTO 1 % (0-2); EOSINOPHILS ABSOLUTE AUTO 0.24 K/mm3 (0.00-0.68); EOSINOPHILS PERCENT AUTO 5 % (0-6); Hemoglobin 7.7 g/dL (11.5-16.0); IMMATURE GRAN ABSOLUTE AUTO 0.01 K/mm3 (0.00-0.10); IMMATURE GRAN PERCENT AUTO 0 % (0-1); LYMPHOCYTES ABSOLUTE AUTO 1.41 K/mm3 (0.84-5.20); LYMPHOCYTES PERCENT AUTO 28 % (21-46); MONOCYTES ABSOLUTE AUTO 0.76 K/mm3 (0.16-1.47); MONOCYTES PERCENT AUTO 15 % (4-13); Mean Corpuscular HGB 27.5 pg (26.0-34.0); Mean Corpuscular HGB Conc 32.1 g/dL (31.5-36.5); Mean Corpuscular Volume 86 fL (80-100); Mean Platelet Volume 9.4 fL (9.1-12.4); NEUTROPHILS ABSOLUTE AUTO 2.67 K/mm3 (1.96-9.15); NEUTROPHILS PERCENT AUTO 52 % (41-73); Platelet Count 112 K/mm3 (150-400); RDW Coefficient Variation 15.3 % (11.7-14.2); RDW Standard Deviation 48.5 fL (35.1-46.3); White Blood Cell Count 5.12 K/mm3 (4.00-11.30)
[2021-07-27 10:07] LABS: Hematocrit 25.1 % (33.0-51.0); Hemoglobin 8.1 g/dL (11.5-16.0)
--- NOTE | 2021-07-27 17:17 | NUR ---
07/27/21 1717 Cecilio Pink History, Chart, Medications and Allergies reviewed before start of procedure. Patient confirms NPO status and agrees with scheduled surgery. 3-LEAD EKG REVIEWED WITH PHYSICIAN PRIOR TO START OF PROCEDURE. MONITOR INTACT WITH CONTINUOUS PULSE OXIMETRY AND INTERMITTENT BP. PATIENT DETERMINED TO BE ASA APPROPRIATE FOR PROPOFOL SEDATION PRIOR TO START OF PROCEDURE BY DR. HORAN. Bite Block Placed, REMOVED AFTER PROCEDURE.
--- NOTE | 2021-07-27 17:29 | NUR ---
SHIFT SUMMARY PT AxOx4. PLEASANT AND COOPERATIVE WITH CARE. PT WENT FOR UPPER ENTEROSCOPY TODAY. PT RETURNED TO ROOM STABLE AT APPROX 1240. POST OP VITALS INITIATED. PT DIET ADVANCED TO FULL LIQUID. SPOKE WITH DAUGHTER, LUCIE ON PHONE FOR UPDATE ON PT STATUS AND PLAN. PT REPORTED PAIN IN BLE. MEDICATED x1 FOR PAIN. VITALS REVIEWED. PT CURRENTLY SITTING IN CHAIR EATING DINNER. CALL LIGHT IN REACH. DENIES ANY NEEDS AT THIS TIME.
--- NOTE | 2021-07-27 19:38 | NUR ---
SOB EPISODE PT REPORTS DIFFICULTY BREATHING. VITALS TAKEN. LS CRACKLES IN BASES. CALL TO DR JIMENEZ. ORDERS TO DC IV INF AND GIVE IV LASIX. RT CALLED. PT RECIEVED TX AND REPORTS BREATHING MUCH BETTER AT THIS TIME. PT CURRENTLY RESTING ON 3L O2 VIA NC AT SATS AT 96%
--- NOTE | 2021-07-28 04:23 | NUR ---
SHIFT SUMMARY Patient recovered from SOB. She remains on 3 1/2 L via N/C. No other events occurs during the night. She underwent an Upper Enteroscopy yesterday. Findings was an Erosions with mild oozing of blood noted in the stomach that was controlled by placement of two endoclips. She is stable at this time. We are monitoring patient closely.
[2021-07-28 04:49] LABS: Hematocrit 24.4 % (33.0-51.0); Hemoglobin 7.8 g/dL (11.5-16.0); Mean Corpuscular HGB 27.3 pg (26.0-34.0); Mean Corpuscular Volume 85 fL (80-100); Mean Platelet Volume 9.4 fL (9.1-12.4); Platelet Count 120 K/mm3 (150-400); RDW Standard Deviation 47.1 fL (35.1-46.3); Red Blood Cell Count 2.86 M/mm3 (3.80-5.20); White Blood Cell Count 14.66 K/mm3 (4.00-11.30)
[2021-07-28 05:07] LABS: Bun/Creatinine Ratio 31.3 (12.0-20.0); Calcium, Blood 8.2 mg/dL (8.5-10.1); Creatinine, Blood 1.31 mg/dL (0.40-1.00); Potassium, Blood 3.7 mmol/L (3.5-5.5)
--- NOTE | 2021-07-28 08:32 | NUR ---
PATIENT COOPERATIVE AND ALERT AND ORIENTED X4. LUNG SOUNDS ASCULTATED TO BE DIMINISHED BUT CLEAR BILATERALLY. PATIENT REPORTS SENSATION HAS BEEN DIMINISHED ON HER LEFT SIDE SINCE PREVIOUS CVA. PEDAL PULSES WERE WEAK UPON PALPATION, ESPECIALLY ON THE LEFT. THE PATIENT ALSO DEMONSTRATED WEAK DORISFLEXION/PLANTAR EXTENSION IN BOTH EXTREMETIES. SHE WAS ABLE TO AMOBULATE A SHORT DISTANCE TO THE BEDSIDE COMMODE WITH ASSISTANCE. SHE CONTINUES TO PASS BLACK LIQUID STOOLS. HER OXYGEN SATRUATION WAS 100% WITH 3L SUPPLEMENTAL OXYGEN. SUPPLEMENTAL OXYGEN WAS TITRATED DOWN TO 2L, AND SATURATION REMAINED STABLE.
--- NOTE | 2021-07-28 18:32 | NUR ---
PATIENT TITRATED OFF OXYGEN. O2 SATURATION CURRENTLY 100% ON ROOM AIR. NO FURTHER ACUTE EVENTS THIS SHIFT.
--- NOTE | 2021-07-28 18:51 | NUR ---
concure with student nurses notes, call light in reach.
[2021-07-29 04:35] LABS: Hematocrit 25.2 % (33.0-51.0); Mean Corpuscular HGB 27.7 pg (26.0-34.0); Mean Corpuscular HGB Conc 31.7 g/dL (31.5-36.5); Mean Corpuscular Volume 87 fL (80-100); Mean Platelet Volume 9.6 fL (9.1-12.4); Platelet Count 108 K/mm3 (150-400); RDW Coefficient Variation 15.3 % (11.7-14.2); RDW Standard Deviation 48.5 fL (35.1-46.3); Red Blood Cell Count 2.89 M/mm3 (3.80-5.20); White Blood Cell Count 7.71 K/mm3 (4.00-11.30)
[2021-07-29 04:54] LABS: Bun/Creatinine Ratio 28.3 (12.0-20.0); Calcium, Blood 8.4 mg/dL (8.5-10.1); Creatinine, Blood 1.38 mg/dL (0.40-1.00)
--- NOTE | 2021-07-29 13:45 | NUR ---
PATIENT D/C'D TO HOME WITH FAMILY. DC INSTRUCTIONS AND EDUCATIONS DISCUSSED WITH PATIENT AND COPY PROVIDED. PATIENT DENIES ANY FURTHER QUESTIONS OR CONCERNS. RX MEDICATIONS FAXED TO [facility].
== END 2021-07-29 13:30 | disposition home or self-care (01) | DRG 377 ==
LOC: ER 13:50 → MEDS 22:43
PROVIDERS: Internal Medicine; Physician Assistant; Student in an Organized Health Care Education/Training Program; ADMIT Internal Medicine
PROC: 0W3P8ZZ Control Bleeding in Gastrointestinal Tract, Via Natural or Artificial Opening Endoscopic (ICD-10-PCS; 2021-07-27)
PROC: 30233N1 Transfusion of Nonautologous Red Blood Cells into Peripheral Vein, Percutaneous Approach (ICD-10-PCS; principal; 2021-07-27 12:00)
DX: K25.4 Chronic or unspecified gastric ulcer with hemorrhage (principal); I50.33 Acute on chronic diastolic (congestive) heart failure; J96.01 Acute respiratory failure with hypoxia; I13.0 Hypertensive heart and chronic kidney disease with heart failure and stage 1 through stage 4 chronic kidney disease, or unspecified chronic kidney disease; K29.71 Gastritis, unspecified, with bleeding; Z20.822 Contact with and (suspected) exposure to COVID-19; Z66 Do not resuscitate; I71.4 Abdominal aortic aneurysm, without rupture; N18.9 Chronic kidney disease, unspecified; K44.9 Diaphragmatic hernia without obstruction or gangrene; M19.90 Unspecified osteoarthritis, unspecified site; I25.10 Atherosclerotic heart disease of native coronary artery without angina pectoris; E78.5 Hyperlipidemia, unspecified; I48.0 Paroxysmal atrial fibrillation; G25.81 Restless legs syndrome; Z53.29 Procedure and treatment not carried out because of patient's decision for other reasons; Z87.891 Personal history of nicotine dependence; Z86.73 Personal history of transient ischemic attack (TIA), and cerebral infarction without residual deficits; Z95.5 Presence of coronary angioplasty implant and graft; Z98.890 Other specified postprocedural states; Z79.02 Long term (current) use of antithrombotics/antiplatelets; Z79.899 Other long term (current) drug therapy
CPT/HCPCS: 0241U; 36415; 36430; 80048; 80053; 81001; 82728; 83540; 83550; 85014; 85018; 85025; 85027; 85610; 85730; 86850; 86900; 86901; 86923; 87086; 93005; 93010; 96374; 99285-25; A9270; C9113; J1940; J2250; J2704; J7030; P9016

== ENCOUNTER → 2021-08-14 | Outpatient (CLI) | payer MEDICARE ==
[~2021-08-14] MED LIST changes: +CARVEDILOL3.125 MG PO; +HYDCHL25 PO; +LASIX20 M2 PO; +PANT40 PO; +PRAMIPEXOLE D0.25 M1 PO; +VITAMIN D31000 UNI1 PO; +ZESTRIL40 M1 PO
[2021-08-14 15:51] LABS: BASOPHILS ABSOLUTE AUTO 0.04 K/mm3 (0.00-0.23); BASOPHILS PERCENT AUTO 1 % (0-2); EOSINOPHILS ABSOLUTE AUTO 0.24 K/mm3 (0.00-0.68); EOSINOPHILS PERCENT AUTO 5 % (0-6); Hematocrit 28.5 % (33.0-51.0); Hemoglobin 8.6 g/dL (11.5-16.0); IMMATURE GRAN ABSOLUTE AUTO 0.01 K/mm3 (0.00-0.10); IMMATURE GRAN PERCENT AUTO 0 % (0-1); LYMPHOCYTES ABSOLUTE AUTO 1.16 K/mm3 (0.84-5.20); LYMPHOCYTES PERCENT AUTO 22 % (21-46); MONOCYTES PERCENT AUTO 13 % (4-13); Mean Corpuscular HGB 26.3 pg (26.0-34.0); Mean Corpuscular HGB Conc 30.2 g/dL (31.5-36.5); Mean Corpuscular Volume 87 fL (80-100); Mean Platelet Volume 9.7 fL (9.1-12.4); NEUTROPHILS ABSOLUTE AUTO 3.15 K/mm3 (1.96-9.15); NEUTROPHILS PERCENT AUTO 59 % (41-73); Platelet Count 146 K/mm3 (150-400); RDW Coefficient Variation 15.1 % (11.7-14.2); RDW Standard Deviation 48.3 fL (35.1-46.3); Red Blood Cell Count 3.27 M/mm3 (3.80-5.20)
== END | disposition home or self-care (01) ==
LOC: LAB SHORT 15:35
PROVIDERS: Nurse Practitioner Family
DX: N18.9 Chronic kidney disease, unspecified (principal); D63.1 Anemia in chronic kidney disease
CPT/HCPCS: 85025

== ENCOUNTER 2021-09-01 12:54 | Emergency (ER) | payer MEDICARE ==
[~2021-09-01] VITALS: Ht 162.6 cm; Wt 52.2 kg
[2021-09-01 13:52] LABS: BASOPHILS ABSOLUTE AUTO 0.04 K/mm3 (0.00-0.23); BASOPHILS PERCENT AUTO 1 % (0-2); EOSINOPHILS ABSOLUTE AUTO 0.24 K/mm3 (0.00-0.68); EOSINOPHILS PERCENT AUTO 5 % (0-6); Hematocrit 28.8 % (33.0-51.0); Hemoglobin 8.6 g/dL (11.5-16.0); IMMATURE GRAN ABSOLUTE AUTO 0.02 K/mm3 (0.00-0.10); IMMATURE GRAN PERCENT AUTO 0 % (0-1); LYMPHOCYTES ABSOLUTE AUTO 1.01 K/mm3 (0.84-5.20); LYMPHOCYTES PERCENT AUTO 21 % (21-46); MONOCYTES ABSOLUTE AUTO 0.69 K/mm3 (0.16-1.47); MONOCYTES PERCENT AUTO 14 % (4-13); Mean Corpuscular HGB 24.7 pg (26.0-34.0); Mean Corpuscular HGB Conc 29.9 g/dL (31.5-36.5); Mean Corpuscular Volume 83 fL (80-100); Mean Platelet Volume 9.5 fL (9.1-12.4); NEUTROPHILS ABSOLUTE AUTO 2.87 K/mm3 (1.96-9.15); NEUTROPHILS PERCENT AUTO 59 % (41-73); Platelet Count 154 K/mm3 (150-400); RDW Coefficient Variation 15.2 % (11.7-14.2); RDW Standard Deviation 46.4 fL (35.1-46.3); Red Blood Cell Count 3.48 M/mm3 (3.80-5.20); White Blood Cell Count 4.87 K/mm3 (4.00-11.30)
[2021-09-01 14:14] LABS: Albumin, Blood 3.1 g/dL (3.4-5.0); Albumin/Globulin Ratio 0.8 (0.8-1.8); Bilirubin, Total 0.8 mg/dL (0.1-1.0); Bun/Creatinine Ratio 17.1 (12.0-20.0); Calcium, Blood 8.7 mg/dL (8.5-10.1); Creatinine, Blood 1.17 mg/dL (0.40-1.00); Globulin, Blood 3.9 g/dL (2.2-4.0); Potassium, Blood 3.4 mmol/L (3.5-5.5)
== END 2021-09-01 17:36 | disposition home or self-care (01) ==
LOC: ER 12:54
PROVIDERS: Anesthesiology
DX: J81.1 Chronic pulmonary edema (principal); I11.0 Hypertensive heart disease with heart failure; I50.30 Unspecified diastolic (congestive) heart failure; I25.10 Atherosclerotic heart disease of native coronary artery without angina pectoris; E78.5 Hyperlipidemia, unspecified; I48.0 Paroxysmal atrial fibrillation; D64.9 Anemia, unspecified; Z86.73 Personal history of transient ischemic attack (TIA), and cerebral infarction without residual deficits
CPT/HCPCS: 36415; 71046; 80053; 85025; 86850; 86900; 86901; 93005; 93010; 96374; 99285-25; J1940

== ENCOUNTER → 2021-09-12 | Outpatient (CLI) | payer MEDICARE ==
[2021-09-12 19:06] LABS: BASOPHILS ABSOLUTE AUTO 0.04 K/mm3 (0.00-0.23); BASOPHILS PERCENT AUTO 1 % (0-2); EOSINOPHILS ABSOLUTE AUTO 0.23 K/mm3 (0.00-0.68); EOSINOPHILS PERCENT AUTO 4 % (0-6); Hemoglobin 8.8 g/dL (11.5-16.0); IMMATURE GRAN ABSOLUTE AUTO 0.02 K/mm3 (0.00-0.10); IMMATURE GRAN PERCENT AUTO 0 % (0-1); LYMPHOCYTES ABSOLUTE AUTO 1.15 K/mm3 (0.84-5.20); LYMPHOCYTES PERCENT AUTO 20 % (21-46); MONOCYTES ABSOLUTE AUTO 0.79 K/mm3 (0.16-1.47); MONOCYTES PERCENT AUTO 14 % (4-13); Mean Corpuscular HGB 23.9 pg (26.0-34.0); Mean Corpuscular HGB Conc 29.3 g/dL (31.5-36.5); Mean Corpuscular Volume 82 fL (80-100); Mean Platelet Volume 9.9 fL (9.1-12.4); NEUTROPHILS ABSOLUTE AUTO 3.55 K/mm3 (1.96-9.15); NEUTROPHILS PERCENT AUTO 61 % (41-73); Platelet Count 161 K/mm3 (150-400); RDW Coefficient Variation 15.6 % (11.7-14.2); RDW Standard Deviation 46.5 fL (35.1-46.3); Red Blood Cell Count 3.68 M/mm3 (3.80-5.20); White Blood Cell Count 5.78 K/mm3 (4.00-11.30)
[2021-09-12 19:18] LABS: Creatinine, Blood 1.06 mg/dL (0.40-1.00); Potassium, Blood 3.5 mmol/L (3.5-5.5)
== END | disposition home or self-care (01) ==
LOC: LAB 18:00 → LAB SHORT 18:00
PROVIDERS: Physician Assistant
DX: I50.30 Unspecified diastolic (congestive) heart failure (principal); M54.6 Pain in thoracic spine; R05.9 Cough, unspecified
CPT/HCPCS: 80048; 83880; 85025

== ENCOUNTER 2021-09-17 19:58 | Inpatient (IN) | payer MEDICARE ==
[~2021-09-17] VITALS: Ht 162.6 cm; Wt 52.8 kg
[2021-09-17 20:29] LABS: BASOPHILS ABSOLUTE AUTO 0.07 K/mm3 (0.00-0.23); BASOPHILS PERCENT AUTO 1 % (0-2); EOSINOPHILS ABSOLUTE AUTO 0.32 K/mm3 (0.00-0.68); EOSINOPHILS PERCENT AUTO 2 % (0-6); Hematocrit 31.9 % (33.0-51.0); Hemoglobin 9.5 g/dL (11.5-16.0); IMMATURE GRAN ABSOLUTE AUTO 0.09 K/mm3 (0.00-0.10); IMMATURE GRAN PERCENT AUTO 1 % (0-1); LYMPHOCYTES ABSOLUTE AUTO 1.42 K/mm3 (0.84-5.20); LYMPHOCYTES PERCENT AUTO 10 % (21-46); MONOCYTES ABSOLUTE AUTO 1.02 K/mm3 (0.16-1.47); MONOCYTES PERCENT AUTO 7 % (4-13); Mean Corpuscular HGB 24.2 pg (26.0-34.0); Mean Corpuscular HGB Conc 29.8 g/dL (31.5-36.5); Mean Corpuscular Volume 81 fL (80-100); Mean Platelet Volume 9.9 fL (9.1-12.4); NEUTROPHILS PERCENT AUTO 80 % (41-73); Platelet Count 191 K/mm3 (150-400); RDW Coefficient Variation 16.1 % (11.7-14.2); RDW Standard Deviation 47.8 fL (35.1-46.3); Red Blood Cell Count 3.92 M/mm3 (3.80-5.20); White Blood Cell Count 14.82 K/mm3 (4.00-11.30)
[2021-09-17 20:45] LABS: International Normalized Ratio 1.19; Prothrombin Time Results 12.4 Sec (9.7-11.5)
[2021-09-17 20:48] LABS: Albumin, Blood 3.2 g/dL (3.4-5.0); Albumin/Globulin Ratio 0.7 (0.8-1.8); Bilirubin, Total 0.9 mg/dL (0.1-1.0); Bun/Creatinine Ratio 16.7 (12.0-20.0); Calcium, Blood 8.6 mg/dL (8.5-10.1); Creatinine, Blood 0.96 mg/dL (0.40-1.00); Globulin, Blood 4.4 g/dL (2.2-4.0); Potassium, Blood 3.8 mmol/L (3.5-5.5); Total Protein, Blood 7.6 g/dL (6.4-8.2)
[2021-09-17 20:52] LABS: PCO2 Arterial 53.8 mmHg (35-45); PO2 Arterial 68.7 mmHg (80-100); pH Blood Arterial 7.37 (7.35-7.45)
--- NOTE | 2021-09-18 02:14 | NUR ---
PATIENT IS A NEW ADMIT FROM THE ED. AXO X4. SBA FROM [facility] TO BED. ON 3L O2 NC AND RA BASELINE. SOB W/EXERTION. PLACED ON TELEMETRY AND TECH REPORTS NSR 92. LIVES IN APARTMENT WITH DAUGHTER. MULTIPLE VOIDS WITH LASIX GIVEN IN ED. STAND PIVOT WITH FWW TO BSC. DENIES CHEST PAIN AND N/V. ORIENTED TO ROOM AND CALL LIGHT SYSTEM. WATCHING TV AFTER ASSESSMENT. WCTM.
[2021-09-18 05:23] LABS: BASOPHILS ABSOLUTE AUTO 0.03 K/mm3 (0.00-0.23); BASOPHILS PERCENT AUTO 0 % (0-2); EOSINOPHILS ABSOLUTE AUTO 0.04 K/mm3 (0.00-0.68); EOSINOPHILS PERCENT AUTO 1 % (0-6); Hematocrit 26.4 % (33.0-51.0); Hemoglobin 7.9 g/dL (11.5-16.0); IMMATURE GRAN ABSOLUTE AUTO 0.01 K/mm3 (0.00-0.10); IMMATURE GRAN PERCENT AUTO 0 % (0-1); LYMPHOCYTES ABSOLUTE AUTO 1.27 K/mm3 (0.84-5.20); LYMPHOCYTES PERCENT AUTO 19 % (21-46); MONOCYTES ABSOLUTE AUTO 0.61 K/mm3 (0.16-1.47); MONOCYTES PERCENT AUTO 9 % (4-13); Mean Corpuscular HGB Conc 29.9 g/dL (31.5-36.5); Mean Corpuscular Volume 80 fL (80-100); Mean Platelet Volume 10.1 fL (9.1-12.4); NEUTROPHILS ABSOLUTE AUTO 4.71 K/mm3 (1.96-9.15); NEUTROPHILS PERCENT AUTO 71 % (41-73); Platelet Count 135 K/mm3 (150-400); RDW Standard Deviation 46.5 fL (35.1-46.3); Red Blood Cell Count 3.29 M/mm3 (3.80-5.20); White Blood Cell Count 6.67 K/mm3 (4.00-11.30)
--- NOTE | 2021-09-18 05:40 | NUR ---
SHIFT SUMMARY PATIENT HAD NO ACUTE CHANGES. AXOX 4 AND ONE ASSIST TO BSC W/FWW. ON 3L O2 NC AND RA BASELINE. PIV INTACT. IV ABX INFUSED. [employer] REPORTS NSR 92. SCATTER BRUISING T/O. EDEMA 2+ BLE. HYPERTENSIVE 170/86 AND IV APRESOLINE 10 MG GIVEN. RECHECKED AT 150/59. REPORTS RESTLESS LEGS AND TYLENOL #3 W/CODEINE ONE TAB GIVEN PER EMAR. DENIES CHEST PAIN AND N/V. SOB W/EXERTION. CALL LIGHT IN REACH. BED IN LOWEST POSITION. WILL CONTINUE TO MONITOR UNTIL DAY SHIFT NURSE ASSUMES CARE.
[2021-09-18 05:51] LABS: Albumin, Blood 2.7 g/dL (3.4-5.0); Albumin/Globulin Ratio 0.7 (0.8-1.8); Bilirubin, Total 0.8 mg/dL (0.1-1.0); Bun/Creatinine Ratio 15.9 (12.0-20.0); Calcium, Blood 8.2 mg/dL (8.5-10.1); Creatinine, Blood 0.95 mg/dL (0.40-1.00); Globulin, Blood 3.7 g/dL (2.2-4.0); Potassium, Blood 3.1 mmol/L (3.5-5.5); Total Protein, Blood 6.4 g/dL (6.4-8.2)
--- NOTE | 2021-09-18 16:29 | NUR ---
SHIFT SUMMARY PATIENT IS ALERT AND ORIENTED X3-4. PATIENT HAS NO COMPLAINTS OF PAIN, NAUSEA, VOMMITING OR SOB THIS SHIFT. PATIENT IS STILL ON 3L O2 FOR THE ENTIRE SHIFT WITH NO INCIDENT. PATIENT IS A ONE PERSON ASSIST. PATIENT HAD NO ACUTE EVENTS THIS SHIFT. VITAL SIGNS REVIEWED. BED IN LOCKED AND LOWEST POSITION. CALL LIGHT IN PLACE. WILL MONITOR UNTIL SHIFT CHANGE.
--- NOTE | 2021-09-19 04:18 | NUR ---
SHIFT SUMMARY PATIENT HAD NO ACUTE CHANGES OBSERVED. AXOX 4 AND ONE ASSIST TO BSC. ON 2L O2 NC AND RA BASELINE. REPORTED RESTLESS LEG PAIN AND TYLENOL #3 GIVEN PER EMAR. WATCHED TV FIRST PART OF SHIFT. VSS/AFEBRILE. DENIES SOB AND N/V. CALL LIGHT IN REACH. BED IN LOWEST POSITION. WILL CONTINUE TO MONITOR UNTIL DAY SHIFT NURSE ASSUMES CARE.
[2021-09-19 04:50] LABS: Hematocrit 26.6 % (33.0-51.0); Hemoglobin 7.8 g/dL (11.5-16.0); Mean Corpuscular HGB 23.9 pg (26.0-34.0); Mean Corpuscular HGB Conc 29.3 g/dL (31.5-36.5); Mean Corpuscular Volume 81 fL (80-100); Mean Platelet Volume 10.2 fL (9.1-12.4); Platelet Count 119 K/mm3 (150-400); RDW Coefficient Variation 16.3 % (11.7-14.2); RDW Standard Deviation 48.8 fL (35.1-46.3); Red Blood Cell Count 3.27 M/mm3 (3.80-5.20)
[2021-09-19 05:23] LABS: Bun/Creatinine Ratio 15.3 (12.0-20.0); Calcium, Blood 8.1 mg/dL (8.5-10.1); Creatinine, Blood 1.24 mg/dL (0.40-1.00); Potassium, Blood 3.7 mmol/L (3.5-5.5)
[2021-09-19] MEDS ORDERED: Prinivil10 MG PO (12:07)
[2021-09-19] MEDS ORDERED: FURO20 PO (12:08)
[2021-09-19] MEDS ORDERED: DOCU100 PO (12:09)
[2021-09-19] MEDS ORDERED: FERSU300 PO (12:12)
--- NOTE | 2021-09-19 14:18 | NUR ---
DISCHARGE SUMMARY PATIENT IS ALERT AND ORIENTED X4. PATIENT HAS HAD NO ACUTE EVENTS THIS SHIFT. VITAL SIGNS REVIEWED. PATIENT HAD DISCHARGE INSTRUCTIONS READ TO DAUGHTER AND PATIENT. HOME 02 WAS SETUP FOR PATIENT UPON DISCHARGE. PATIENT WAS WHEELED OUT BY PATIENTS DAUGHTER WITH [employer] WOLFF.
== END 2021-09-19 13:47 | disposition home or self-care (01) | DRG 291 ==
LOC: ER 19:58 → MEDS 19:59 → ER 23:44 → MEDS 23:44 → ENPENDDIS 09-19 11:09 → MEDS 09-19 13:47
PROVIDERS: Emergency Medicine; Internal Medicine; ADMIT Internal Medicine
DX: I13.0 Hypertensive heart and chronic kidney disease with heart failure and stage 1 through stage 4 chronic kidney disease, or unspecified chronic kidney disease (principal); I50.33 Acute on chronic diastolic (congestive) heart failure; J96.01 Acute respiratory failure with hypoxia; E78.00 Pure hypercholesterolemia, unspecified; N18.30 Chronic kidney disease, stage 3 unspecified; I25.10 Atherosclerotic heart disease of native coronary artery without angina pectoris; D63.1 Anemia in chronic kidney disease; I73.9 Peripheral vascular disease, unspecified; G25.81 Restless legs syndrome; I16.0 Hypertensive urgency; J20.9 Acute bronchitis, unspecified; Z66 Do not resuscitate; I48.0 Paroxysmal atrial fibrillation; I71.4 Abdominal aortic aneurysm, without rupture; D50.9 Iron deficiency anemia, unspecified; Z96.642 Presence of left artificial hip joint; Z86.73 Personal history of transient ischemic attack (TIA), and cerebral infarction without residual deficits; Z95.5 Presence of coronary angioplasty implant and graft; Z98.890 Other specified postprocedural states; Z87.891 Personal history of nicotine dependence; Z79.899 Other long term (current) drug therapy
CPT/HCPCS: 36415; 36600; 71046; 80048; 80053; 82728; 82803; 83540; 83550; 83880; 84484; 85025; 85027; 85610; 93005; 93010; 94761; 96374; 99285-25; A9270; C9113; J0360; J0456; J1650; J1940; J7050

== ENCOUNTER 2021-12-02 14:21 | Emergency (ER) | payer MEDICARE ==
[~2021-12-02] VITALS: Ht 160 cm; Wt 45.4 kg
[~2021-12-02 14:21] MED LIST changes: +FERSU300 PO; +FURO20 PO; +Prinivil10 MG PO
[2021-12-02 15:11] LABS: BASOPHILS ABSOLUTE AUTO 0.03 K/mm3 (0.00-0.23); BASOPHILS PERCENT AUTO 1 % (0-2); EOSINOPHILS ABSOLUTE AUTO 0.03 K/mm3 (0.00-0.68); EOSINOPHILS PERCENT AUTO 1 % (0-6); Hematocrit 36.5 % (33.0-51.0); Hemoglobin 11.9 g/dL (11.5-16.0); IMMATURE GRAN ABSOLUTE AUTO 0.01 K/mm3 (0.00-0.10); IMMATURE GRAN PERCENT AUTO 0 % (0-1); LYMPHOCYTES ABSOLUTE AUTO 1.77 K/mm3 (0.84-5.20); LYMPHOCYTES PERCENT AUTO 29 % (21-46); MONOCYTES ABSOLUTE AUTO 0.61 K/mm3 (0.16-1.47); MONOCYTES PERCENT AUTO 10 % (4-13); Mean Corpuscular HGB 26.2 pg (26.0-34.0); Mean Corpuscular HGB Conc 32.6 g/dL (31.5-36.5); Mean Corpuscular Volume 80 fL (80-100); Mean Platelet Volume 9.1 fL (9.1-12.4); NEUTROPHILS ABSOLUTE AUTO 3.69 K/mm3 (1.96-9.15); NEUTROPHILS PERCENT AUTO 60 % (41-73); Platelet Count 121 K/mm3 (150-400); RDW Coefficient Variation 20.1 % (11.7-14.2); RDW Standard Deviation 59.1 fL (35.1-46.3); Red Blood Cell Count 4.54 M/mm3 (3.80-5.20); White Blood Cell Count 6.14 K/mm3 (4.00-11.30)
[2021-12-02 15:39] LABS: Albumin, Blood 3.6 g/dL (3.4-5.0); Albumin/Globulin Ratio 0.9 (0.8-1.8); Bilirubin, Total 0.8 mg/dL (0.1-1.0); Bun/Creatinine Ratio 22.9 (12.0-20.0); Calcium, Blood 9.3 mg/dL (8.5-10.1); Creatinine, Blood 0.87 mg/dL (0.40-1.00); Globulin, Blood 3.9 g/dL (2.2-4.0); Potassium, Blood 3.4 mmol/L (3.5-5.5); Total Protein, Blood 7.5 g/dL (6.4-8.2)
[2021-12-02 18:38] LABS: Source, Urine Clean Catch
[2021-12-02 18:42] LABS: Appearance, Urine Cloudy (Clear); Bilirubin, Urine Neg (Neg); Blood, Urine 3+ (Neg); Glucose Qualitative, Urine Neg (Neg); Ketones, Urine 1+ (Neg); Leukocyte Esterase, Urine 2+ (Neg); Nitrite, Urine Neg (Neg); Protein, Urine 3+ (Neg); Specific Gravity, Urine 1.015 (1.003-1.022); Urobilinogen, Urine NORM (Normal)
[2021-12-02 18:51] LABS: Color, Urine Pale Yellow (P-Yellow)
[2021-12-02 18:52] LABS: White Blood Cells, Urine 25-50 /hpf (0-5)
[2021-12-02 18:53] LABS: Bacteria Many /hpf; Hyaline Casts 0-2 /lpf (0-2); Squamous Epithelial Cells Few /hpf (Few); WBC Cast 0-2 /lpf (0)
[2021-12-02] MEDS ORDERED: CEPHALEXIN500 M2 PO (20:19)
== END 2021-12-02 20:33 | disposition home or self-care (01) ==
LOC: ER 14:21
PROVIDERS: Physician Assistant
DX: N39.0 Urinary tract infection, site not specified (principal); I10 Essential (primary) hypertension; R74.8 Abnormal levels of other serum enzymes; I25.10 Atherosclerotic heart disease of native coronary artery without angina pectoris; E78.5 Hyperlipidemia, unspecified; Z86.73 Personal history of transient ischemic attack (TIA), and cerebral infarction without residual deficits; Z87.891 Personal history of nicotine dependence; Z79.899 Other long term (current) drug therapy
CPT/HCPCS: 36415; 74177; 80053; 81001; 83690; 85025; 93005; 93010; J0696; Q9967

== ENCOUNTER 2022-08-06 04:18 | Inpatient (IN) | payer MEDICARE ==
[~2022-08-06] VITALS: Ht 172.7 cm; Wt 45.4 kg
[~2022-08-06 04:18] MED LIST changes: +CEPHALEXIN500 M2 PO
[2022-08-06] MEDS ORDERED: CLOP75 PO (04:30)
[2022-08-06 07:27] LABS: BASOPHILS ABSOLUTE AUTO 0.05 K/mm3 (0.00-0.23); BASOPHILS PERCENT AUTO 0 % (0-2); EOSINOPHILS ABSOLUTE AUTO 0.05 K/mm3 (0.00-0.68); EOSINOPHILS PERCENT AUTO 0 % (0-6); Hematocrit 36.8 % (33.0-51.0); IMMATURE GRAN ABSOLUTE AUTO 0.06 K/mm3 (0.00-0.10); IMMATURE GRAN PERCENT AUTO 0 % (0-1); LYMPHOCYTES ABSOLUTE AUTO 1.19 K/mm3 (0.84-5.20); LYMPHOCYTES PERCENT AUTO 9 % (21-46); MONOCYTES ABSOLUTE AUTO 1.38 K/mm3 (0.16-1.47); MONOCYTES PERCENT AUTO 10 % (4-13); Mean Corpuscular HGB 30.7 pg (26.0-34.0); Mean Corpuscular HGB Conc 35.3 g/dL (31.5-36.5); Mean Corpuscular Volume 87 fL (80-100); Mean Platelet Volume 9.1 fL (9.1-12.4); NEUTROPHILS PERCENT AUTO 81 % (41-73); Platelet Count 149 K/mm3 (150-400); RDW Coefficient Variation 13.5 % (11.7-14.2); RDW Standard Deviation 42.5 fL (35.1-46.3); Red Blood Cell Count 4.24 M/mm3 (3.80-5.20); White Blood Cell Count 14.03 K/mm3 (4.00-11.30)
[2022-08-06 07:50] LABS: Calcium, Blood 9.1 mg/dL (8.5-10.1); Creatinine, Blood 0.61 mg/dL (0.40-1.00); Potassium, Blood 3.6 mmol/L (3.5-5.5)
--- NOTE | 2022-08-06 11:43 | NUR ---
DR. CUELLAR NOTIFIED THAT PT IS NON-SURGICAL FROM DR. HERNANDEZ'S STANDPOINT AND PLAN IS TO MANAGE PAIN AND MOBILIZE. AT THIS TIME PLAN FOR PT TO EAT. PER DR. CUELLAR NO IV FLUIDS NEEDED. PO PAIN MEDICATION REQUESTED FOR MOBILIZATION WITH PHYISICAL THERAPY. PLAN TO CONTINUE WITH THERAPY R/T HX OF PAROXYSMAL AFIB.
[2022-08-06] MEDS ORDERED: TURMERIC500 M2 PO (13:30)
[2022-08-06] MEDS ORDERED: Norco 5-325 Ta1 EACH PO (16:54)
--- NOTE | 2022-08-06 19:36 | NUR ---
DISCHARGE PT PROVIDED WITH WRITTEN AND VERBAL DISCHARGE INSTRUCTIONS; SHE REPORTED UNDERSTANDING. PT CLEARED THERAPY, HOME HEALTH ARRANGED BY CECE DRIVER. VSS AT TIME OF DISCHARGE. DR. CUELLAR AWARE OF ELEVATED BP, COREG GIVEN PRIOR TO DISCHARGE AND PT EDUCATED TO TAKE LISINOPRIL AT HOME PRIOR TO BED. PT WAS ALSO EDUCATED TO MONITOR AND RECORD BLOOD PRESSURE AND F/U WITH PCP IN 3-5 DAYS. PT ABLE TO EAT AND VOID PRIOR TO DISCHARGE. PAIN MANAGED. FAMILY PRESENT FOR SUPPORT AND TIME OF DISCHARGE, PT AND FAMILY REPORTED THEY WERE PLEASED WITH DISCHARGE PLAN.
== END 2022-08-06 18:09 | disposition home health service (06) | DRG 536 ==
LOC: ER 04:18 → SURS 08:15
PROVIDERS: Emergency Medicine; ADMIT Internal Medicine
DX: S72.111A Displaced fracture of greater trochanter of right femur, initial encounter for closed fracture (principal); Z66 Do not resuscitate; I25.10 Atherosclerotic heart disease of native coronary artery without angina pectoris; I48.0 Paroxysmal atrial fibrillation; E78.5 Hyperlipidemia, unspecified; M19.90 Unspecified osteoarthritis, unspecified site; G25.81 Restless legs syndrome; I71.40 Abdominal aortic aneurysm, without rupture, unspecified; Z96.642 Presence of left artificial hip joint; Z28.21 Immunization not carried out because of patient refusal; Z86.73 Personal history of transient ischemic attack (TIA), and cerebral infarction without residual deficits; Z98.890 Other specified postprocedural states; Z87.891 Personal history of nicotine dependence; Z95.5 Presence of coronary angioplasty implant and graft; Z79.899 Other long term (current) drug therapy; W18.39XA Other fall on same level, initial encounter
CPT/HCPCS: 36415; 73502; 73700; 80048; 85025; 96372-59; 96374; 96375; 97110; 97116; 97162; 97166; 97530; 99285-25; A9270; C9113; J1885

== ENCOUNTER 2022-12-13 14:55 | Emergency (ER) | payer MEDICARE ==
[~2022-12-13] VITALS: Ht 157.5 cm; Wt 43.1 kg
[~2022-12-13 14:55] MED LIST changes: +TURMERIC500 M2 PO
[2022-12-13 15:28] LABS: BASOPHILS ABSOLUTE AUTO 0.04 K/mm3 (0.00-0.23); BASOPHILS PERCENT AUTO 1 % (0-2); EOSINOPHILS ABSOLUTE AUTO 0.13 K/mm3 (0.00-0.68); EOSINOPHILS PERCENT AUTO 2 % (0-6); Hematocrit 36.1 % (33.0-51.0); Hemoglobin 12.5 g/dL (11.5-16.0); IMMATURE GRAN ABSOLUTE AUTO 0.01 K/mm3 (0.00-0.10); IMMATURE GRAN PERCENT AUTO 0 % (0-1); LYMPHOCYTES ABSOLUTE AUTO 2.41 K/mm3 (0.84-5.20); LYMPHOCYTES PERCENT AUTO 35 % (21-46); MONOCYTES ABSOLUTE AUTO 0.75 K/mm3 (0.16-1.47); MONOCYTES PERCENT AUTO 11 % (4-13); Mean Corpuscular HGB 30.3 pg (26.0-34.0); Mean Corpuscular HGB Conc 34.6 g/dL (31.5-36.5); Mean Corpuscular Volume 88 fL (80-100); Mean Platelet Volume 9.2 fL (9.1-12.4); NEUTROPHILS ABSOLUTE AUTO 3.59 K/mm3 (1.96-9.15); NEUTROPHILS PERCENT AUTO 52 % (41-73); Platelet Count 146 K/mm3 (150-400); RDW Coefficient Variation 12.9 % (11.7-14.2); RDW Standard Deviation 41.9 fL (35.1-46.3); Red Blood Cell Count 4.12 M/mm3 (3.80-5.20); White Blood Cell Count 6.93 K/mm3 (4.00-11.30)
[2022-12-13 15:46] LABS: Albumin, Blood 3.6 g/dL (3.4-5.0); Albumin/Globulin Ratio 0.9 (0.8-1.8); Bilirubin, Total 0.5 mg/dL (0.1-1.0); Bun/Creatinine Ratio 26.2 (12.0-20.0); Calcium, Blood 9.1 mg/dL (8.5-10.1); Creatinine, Blood 0.84 mg/dL (0.40-1.00); Potassium, Blood 4.4 mmol/L (3.5-5.5); Total Protein, Blood 7.6 g/dL (6.4-8.2)
[2022-12-13 17:00] VITALS: BP 194/76
== END 2022-12-13 18:14 | disposition home or self-care (01) ==
LOC: ER 14:55
PROVIDERS: Student in an Organized Health Care Education/Training Program
DX: H53.2 Diplopia (principal); Z87.891 Personal history of nicotine dependence
CPT/HCPCS: 70450; 80053; 82947; 85025; 93005; 93010; 99284-25; A9270